=== PATIENT | male | born 1955 | race Caucasian/White ===

== ENCOUNTER → 2016-11-17 | Outpatient (CLI) | payer OTHER | LOC: CLAB 14:45 | PROVIDERS: ATTEND Specialist | DX: B18.2 Chronic viral hepatitis C (principal); K72.90 Hepatic failure, unspecified without coma; R18.8 Other ascites; R79.9 Abnormal finding of blood chemistry, unspecified; Z79.899 Other long term (current) drug therapy; Z28.3 Underimmunization status | CPT/HCPCS: 36415; 82140 ==